=== PATIENT | male | born 1995 | race African-American/Black ===

== ENCOUNTER → 2023-08-11 | Emergency (ER) | payer SELFPAY ==
[~2023-08-11] VITALS: Ht 180.3 cm; Wt 72.6 kg
[2023-08-11 22:59] VITALS: BP 139/82; TEMP 98.1; O2SAT 99
== END | disposition home or self-care (01) ==
LOC: ER 23:28
DX: F19.10 Other psychoactive substance abuse, uncomplicated (principal); F12.10 Cannabis abuse, uncomplicated; R45.1 Restlessness and agitation
CPT/HCPCS: 82962-TC